=== PATIENT | male | born 1980 | race Caucasian/White ===

== ENCOUNTER 2017-06-03 08:29 | Emergency (ER) | payer SELFPAY ==
[~2017-06-03] VITALS: Ht 182.9 cm; Wt 123.0 kg
[2017-06-03] MEDS ORDERED: LORAZEPAM 1MG TABLET PO ONE (10:30)
[2017-06-03] MEDS ORDERED: KETOROLAC 60MG/2ML VIAL IM ONE (10:30)
[2017-06-03] MEDS ORDERED: DEXAMETHASONE 10 MG/ML VIAL IM ONE (10:30)
[2017-06-03 12:29] VITALS: BP 117/66
== END 2017-06-03 12:31 | disposition home or self-care (01) ==
LOC: ER 08:40
DX: M54.5 Low back pain (principal)
CPT/HCPCS: 96372; 99284; J1100; J1885; Z7610